=== PATIENT | male | born 1955 | race Asian ===

== ENCOUNTER 2021-10-17 05:27 | Emergency (ER) | payer OTHER, MEDICAID, SELFPAY ==
[~2021-10-17] VITALS: Ht 182.9 cm; Wt 88.5 kg
[2021-10-17 05:35] VITALS: BP_SYST 120
[2021-10-17] MEDS ORDERED: NACL 0.9% 1,000 ML IV ONE (05:45)
[2021-10-17] MEDS ORDERED: SOTA80TA PO (06:18)
[2021-10-17] MEDS ORDERED: METF-518 PO (06:18)
[2021-10-17] MEDS ORDERED: ALPR2TAB2 PO (06:18)
[2021-10-17] MEDS ORDERED: FAMO40TA7 PO (06:18)
[2021-10-17] MEDS ORDERED: NEU300 PO (06:18)
[2021-10-17] MEDS ORDERED: ICOS1CAP PO (06:18)
[2021-10-17] MEDS ORDERED: ROSU40TA PO (06:18)
[2021-10-17] MEDS ORDERED: SACU1TAB7 PO (06:18)
[2021-10-17] MEDS ORDERED: ZOLP10TA2 PO (06:18)
[2021-10-17 07:01] LABS: BASOPHILS % (AUTO) 0.1 % (0.0-2.0); HEMATOCRIT 37.4 % (36-54); HEMOGLOBIN 12.5 g/dL (14.0-18.0); LYMPHOCYTES # (AUTO) 1.4 K/uL (1.0-5.5); LYMPHOCYTES % (AUTO) 8.7 % (20.5-51.5); MEAN CORPUSCULAR HEMOGLOBIN 32 pg (27-31); MEAN CORPUSCULAR HGB CONC 33 % (32-36); MEAN CORPUSCULAR VOLUME 95 fL (79.0-98.0); MONOCYTES # (AUTO) 0.6 K/uL (0.0-1.0); MONOCYTES % (AUTO) 3.4 % (1.7-9.3); NEUTROPHILS # (AUTO) 14.5 K/uL (1.8-7.7); NEUTROPHILS % (AUTO) 87.8 % (40.0-70.0); PLATELET COUNT (AUTO) 206 K/uL (130-430); RED BLOOD CELL COUNT(AUTO) 3.95 MIL/uL (4.2-6.2); RED CELL DISTRIBUTION WIDTH 15.1 % (9.0-15.0); WHITE BLOOD COUNT (AUTO) 16.6 K/uL (4.8-10.8)
[2021-10-17 07:03] LABS: INR 0.9 (0.80-1.20); PROTHROMBIN TIME 9.9 SECS (9.5-12.5)
[2021-10-17] MEDS ORDERED: PANTOPRAZOLE SODIUM 40 MG/VIAL (PROTONIX) IVP ONE (07:15)
[2021-10-17 07:19] LABS: CALCIUM 8.5 mg/dL (8.4-11.0); CREATININE 0.99 mg/dL (0.55-1.30); POTASSIUM 4.2 mmol/L (3.5-5.1)
[2021-10-17 07:24] LABS: ALBUMIN 3.1 g/dL (3.4-4.8); TOTAL BILIRUBIN 0.2 mg/dL (0.0-1.0)
[2021-10-17 09:52] VITALS: BP_SYST 109
== END 2021-10-17 09:52 | disposition left against medical advice (07) ==
LOC: SED 05:27
DX: K92.2 Gastrointestinal hemorrhage, unspecified (principal); Z79.899 Other long term (current) drug therapy; Z20.822 Contact with and (suspected) exposure to COVID-19
CPT/HCPCS: 36415; 80053; 82272; 82962; 85025; 85610; 85730; 86900; 86901; 87426; 96361; 96374; 99283; C9113; J7030